=== PATIENT | female | born 1960 | race Caucasian/White ===

== ENCOUNTER 2020-10-09 10:31 | Outpatient (REF) | payer OTHER, SELFPAY ==
[2020-10-09 11:02] LABS: Hematocrit 41.5 % (37-47); Mean Corpuscular HGB Conc 33.7 g/dl (31.0-35.0); Mean Corpuscular Volume 91.8 fL (80-98); Mean Platelet Volume 9.7 fL (9.4-12.3); Platelet Count 247 X10*3/uL (160-400); Red Blood Count 4.52 X10*6/uL (4.20-5.50); Red Cell Distribution Width 11.9 % (11.0-16.0); White Blood Count 4.8 X10*3/uL (4.8-10.8)
[2020-10-09 11:28] LABS: Alanine Aminotransferase 14 U/L (0-31); Albumin Level 4.1 g/dL (3.5-5.0); Alkaline Phosphatase 69 U/L (39-117); Anion Gap 11 (12-20); Aspartate Amino Transferase 24 U/L (5-31); Bilirubin Direct 0.2 mg/dL (0.0-0.5); Bilirubin Total 0.5 mg/dL (0.0-1.0); Blood Urea Nitrogen 18 mg/dL (9-16); Calcium 8.7 mg/dL (8.4-10.2); Carbon Dioxide 31 mmol/L (22-29); Chloride 103 mmol/L (96-108); Cholesterol 179 mg/dL; Estimated Glomerular Filt Rate > 60; Glucose Fasting 88 mg/dL (60-99); HDL Cholesterol 80 mg/dL; LDL Cholesterol Calculated 87 mg/dl; Potassium 4.2 mmol/l (3.3-5.1); Sodium 141 mmol/L (135-145); Total Protein 6.8 g/dL (6.5-8.0); Triglycerides 60 mg/dL
== END 2020-10-09 10:32 | disposition home or self-care (01) ==
LOC: HO.LAB 10:31
DX: E78.5 Hyperlipidemia, unspecified (principal); R53.83 Other fatigue
CPT/HCPCS: 36415; 80053; 80061; 80076; 82248; 85027

== ENCOUNTER 2020-11-12 13:31 | Outpatient (REF) | payer OTHER, SELFPAY ==
[2020-11-17 15:02] LABS: HPV mRNA E6/E7 rflx Not Detected (Not Detected)
== END 2020-11-12 13:32 | disposition home or self-care (01) ==
LOC: HO.LNP 13:31
PROVIDERS: Visit Provider Obstetrics & Gynecology
DX: Z01.419 Encounter for gynecological examination (general) (routine) without abnormal findings (principal); F41.9 Anxiety disorder, unspecified; E78.00 Pure hypercholesterolemia, unspecified; Z78.0 Asymptomatic menopausal state; Z88.0 Allergy status to penicillin; Z88.8 Allergy status to other drugs, medicaments and biological substances; Z79.899 Other long term (current) drug therapy
CPT/HCPCS: 87624; 88141; 88142

== ENCOUNTER 2020-12-25 09:30 | Outpatient (REF) | payer OTHER, SELFPAY ==
[2020-12-25 10:05] LABS: MANUAL DIFF FLAG NO
[2020-12-25 10:17] LABS: Basophils Percent Auto 0.7 % (0-2); Eosinophils Absolute Auto 0.1 X10*3/uL (0.0-0.4); Eosinophils Percent Auto 1.6 % (0-4); Hematocrit 41.7 % (37-47); Hemoglobin 14.3 g/dl (12.0-16.0); Imm Gran Abs Auto 0.01 X10*3/uL (0.00-0.03); Imm Gran Pct Auto 0.2 % (0.0-0.4); Lymphocytes Percent Auto 23.8 % (20-40); Mean Corpuscular HGB Conc 34.3 g/dl (31.0-35.0); Mean Corpuscular Hemoglobin 30.9 pg (27.0-33.0); Mean Corpuscular Volume 90.1 fL (80-98); Mean Platelet Volume 10.3 fL (9.4-12.3); Monocytes Absolute Auto 0.3 X10*3/uL (0.1-1.2); Monocytes Percent Auto 6.8 % (2-11); Neutrophils Absolute Auto 2.8 X10*3/uL (2.0-8.3); Neutrophils Percent Auto 66.9 % (45-73); Platelet Count 230 X10*3/uL (160-400); Red Blood Count 4.63 X10*6/uL (4.20-5.50); Red Cell Distribution Width 12.1 % (11.0-16.0); White Blood Count 4.3 X10*3/uL (4.8-10.8)
[2020-12-25 10:31] LABS: Alanine Aminotransferase 15 U/L (0-31); Albumin Level 4.1 g/dL (3.5-5.0); Alkaline Phosphatase 64 U/L (39-117); Anion Gap 10 (12-20); Aspartate Amino Transferase 24 U/L (5-31); Bilirubin Total 0.5 mg/dL (0.0-1.0); Blood Urea Nitrogen 16 mg/dL (9-16); Calcium 8.8 mg/dL (8.4-10.2); Carbon Dioxide 30 mmol/L (22-29); Chloride 104 mmol/L (96-108); Cholesterol 177 mg/dL; Estimated Glomerular Filt Rate > 60; Glucose Fasting 88 mg/dL (60-99); HDL Cholesterol 83 mg/dL; LDL Cholesterol Calculated 82 mg/dl; Sodium 140 mmol/L (135-145); Total Protein 6.5 g/dL (6.5-8.0); Triglycerides 64 mg/dL
[2020-12-25 10:52] LABS: Thyroid Stimulating Hormone 1.38 uIU/mL (0.32-4.0)
== END 2020-12-25 09:31 | disposition home or self-care (01) ==
LOC: HO.LAB 09:30
PROVIDERS: PCP Internal Medicine; Visit Provider Internal Medicine
DX: Z00.00 Encounter for general adult medical examination without abnormal findings (principal); E78.00 Pure hypercholesterolemia, unspecified; F32.89 Other specified depressive episodes; F41.8 Other specified anxiety disorders
CPT/HCPCS: 36415; 80053; 80061; 84443; 85025

== ENCOUNTER 2021-05-25 15:09 | Outpatient (REF) | payer OTHER, SELFPAY ==
--- NOTE | ~2021-05-25 | MM_ITS ---
EXAMINATION: MM SCREENING DIGITAL BREAST TOMOSYNTHESIS, BILATERAL CLINICAL INFORMATION: Screening. Asymptomatic. The lifetime risk of breast cancer based on the Tyrer-Cuzick Model is 9%. COMPARISON: Mammography: 05/19/2020, 03/08/2019, 03/02/2018 TECHNIQUE: Digital breast tomosynthesis is performed in both the craniocaudal and mediolateral oblique views along with computer-aided detection (CAD). Synthesized 2D images are generated from the tomosynthesis. FINDINGS: There are scattered areas of fibroglandular density (ACR BI-RADS breast composition Category b). There are no significant masses, abnormal calcifications, or other abnormalities. There is no developing density. Parenchymal pattern is similar to prior studies. There are some scattered punctate and coarse calcifications again noted. The axilla and skin contours are unremarkable. MM/MM tomosynthesis screening BI IMPRESSION: No mammographic evidence of malignancy. ASSESSMENT: BI-RADS 1: Negative RECOMMENDATION: Routine annual mammography screening. This patient's information was entered into a reminder system with a target due date for their next mammogram.
== END 2021-05-25 15:10 | disposition home or self-care (01) ==
LOC: HO.MAMMO 15:09
PROVIDERS: Absent Provider Surgery; PCP Internal Medicine; Visit Provider Internal Medicine
DX: Z12.31 Encounter for screening mammogram for malignant neoplasm of breast (principal)
CPT/HCPCS: 77063; 77067

== ENCOUNTER → 2021-06-30 15:22 | Outpatient (BNVA) | payer OTHER, SELFPAY | PROVIDERS: PCP Internal Medicine; Visit Provider Surgery | DX: D24.2 Benign neoplasm of left breast (principal); E78.00 Pure hypercholesterolemia, unspecified; F41.9 Anxiety disorder, unspecified; Z88.0 Allergy status to penicillin; Z88.8 Allergy status to other drugs, medicaments and biological substances | CPT/HCPCS: 99212 ==

== ENCOUNTER → 2021-11-29 10:55 | Outpatient (BNVA) | payer OTHER, SELFPAY | PROVIDERS: PCP Internal Medicine; Visit Provider Obstetrics & Gynecology ==

== ENCOUNTER 2021-11-30 09:07 | Outpatient (REF) | payer OTHER, SELFPAY ==
[2021-11-30 09:28] LABS: MANUAL DIFF FLAG NO
[2021-11-30 09:59] LABS: Basophils Percent Auto 0.2 % (0-2); Eosinophils Absolute Auto 0.1 X10*3/uL (0.0-0.4); Eosinophils Percent Auto 2.3 % (0-4); Hematocrit 39.9 % (37.0-47.0); Hemoglobin 13.4 g/dl (12.0-16.0); Imm Gran Abs Auto 0.01 X10*3/uL (0.00-0.03); Imm Gran Pct Auto 0.2 % (0.0-0.4); Lymphocytes Absolute Auto 1.1 X10*3/uL (1.2-4.9); Lymphocytes Percent Auto 24.4 % (20-40); Mean Corpuscular HGB Conc 33.6 g/dl (31.0-35.0); Mean Corpuscular Hemoglobin 30.4 pg (27.0-33.0); Mean Corpuscular Volume 90.5 fL (80.0-98.0); Monocytes Absolute Auto 0.3 X10*3/uL (0.1-1.2); Monocytes Percent Auto 7.8 % (2-11); Neutrophils Absolute Auto 2.8 x10*3/uL (2.0-8.3); Neutrophils Percent Auto 65.1 % (45-73); Platelet Count 240 X10*3/uL (160-400); Red Blood Count 4.41 X10*6/uL (4.20-5.50); White Blood Count 4.3 X10*3/uL (4.8-10.8)
[2021-11-30 10:58] LABS: Alanine Aminotransferase 15 U/L (0-31); Albumin Level 3.9 g/dL (3.5-5.0); Alkaline Phosphatase 63 U/L (39-117); Anion Gap 10 (12-20); Aspartate Amino Transferase 25 U/L (5-31); Bilirubin Total 0.4 mg/dL (0.0-1.0); Blood Urea Nitrogen 18 mg/dL (9-16); Calcium 8.8 mg/dL (8.4-10.2); Carbon Dioxide 30 mmol/L (22-29); Chloride 105 mmol/L (96-108); Cholesterol 178 mg/dL; Estimated Glomerular Filt Rate > 60; Glucose Random 87 mg/dL (60-115); HDL Cholesterol 57 mg/dL; LDL Cholesterol Calculated 104 mg/dl; Potassium 4.2 mmol/L (3.3-5.1); Sodium 141 mmol/L (135-145); Total Protein 6.5 g/dL (6.5-8.0); Triglycerides 88 mg/dL
[2021-11-30 10:59] LABS: Thyroid Stimulating Hormone 2.17 uIU/mL (0.32-4.0)
== END 2021-11-30 09:08 | disposition home or self-care (01) ==
LOC: HO.LAB 09:07
PROVIDERS: PCP Internal Medicine; Visit Provider Internal Medicine
DX: B35.1 Tinea unguium (principal); E78.00 Pure hypercholesterolemia, unspecified; F32.89 Other specified depressive episodes; F41.8 Other specified anxiety disorders
CPT/HCPCS: 36415; 80053; 80061; 84443; 85025

== ENCOUNTER 2021-12-13 07:59 | Outpatient (REF) | payer OTHER, SELFPAY ==
--- NOTE | ~2021-12-13 | MM_ITS ---
EXAMINATION: BONE DENSITOMETRY CLINICAL INDICATION: Osteoporosis. COMPARISON: This is the patient's baseline examination. TECHNIQUE: Using a [employer] DXA System (software version: 13.1) manufactured by [employer], dual-energy x-ray absorptiometry was performed of the lumbar spine and left hip. The images are of good technical quality. Summary results are attached. FINDINGS: AP SPINE L1-L4: BMD 1.213 g/cm2, Z-score 1.6, T-score 0.3, normal. LEFT FEMUR, NECK: BMD 0.754 g/cm2, Z-score -0.7, T-score -2.0, osteopenia. LEFT FEMUR, TOTAL: BMD 0.770 g/cm2, Z-score -0.9, T-score -1.9, osteopenia. IDENTIFIED RISK FACTORS: Menopause, family history (parent hip fracture). HISTORY OF FRACTURE: None listed. MEDICATIONS: Calcium, vitamin D. MM/XR DEXA axial skeleton IMPRESSION: 1. DIAGNOSIS: Osteopenia based on the lowest T-score value of -2.0 in the femoral neck applying World Health Organization criteria. 2. 10-YEAR FRACTURE RISK PREDICTION, FRAX: Major osteoporotic fracture (clinical spine, forearm, hip or shoulder) 18.2%. Hip fracture 1.3%. 3. Treatment Recommendations: NOF guidelines recommend consideration for treatment in postmenopausal women and men age 50 and older presenting with the following: -A hip or vertebral (clinical or morphometric) fracture. -T-score less than or equal to -2.5 at the femoral neck or spine after appropriate evaluation to exclude secondary causes. -Low bone mass at the hip or spine and a 10-year fracture probability by FRAX of greater than or equal to 3% for hip fracture or greater than or equal to 20% for major osteoporotic fracture based on the [place] adapted WHO algorithm. 4. Other Recommendations: All treatment decisions require clinical judgment and consideration of individual patient factors, including patient preferences, comorbidities, previous drug use, risk factors not captured in the FRAX model (e.g. frailty, falls, vitamin D deficiency, increased bone turnover, interval significant decline in bone density) and possible under or overestimation of fracture risk by FRAX. Additional medical evaluation for secondary cause of low bone mineral density may be appropriate. FUTURE SCAN RECOMMENDATION: People with diagnosed cases of osteoporosis or at high risk for fracture should have regular bone mineral density tests. For patients eligible for Medicare, routine testing is allowed once every 2 years. The testing frequency can be increased to one year for patients who have rapidly progressing disease, those who are receiving or discontinuing medical therapy to restore bone mass, or have additional risk factors.
== END 2021-12-13 08:00 | disposition home or self-care (01) ==
LOC: HO.MAMMO 07:59
PROVIDERS: PCP Internal Medicine; Visit Provider Internal Medicine
DX: Z13.820 Encounter for screening for osteoporosis (principal); M85.80 Other specified disorders of bone density and structure, unspecified site; Z78.0 Asymptomatic menopausal state; Z79.899 Other long term (current) drug therapy
CPT/HCPCS: 77080

== ENCOUNTER 2022-05-26 15:30 | Outpatient (REF) | payer OTHER, SELFPAY ==
--- NOTE | ~2022-05-26 | MM_ITS ---
EXAMINATION: MM SCREENING DIGITAL BREAST TOMOSYNTHESIS, BILATERAL CLINICAL INFORMATION: Screening. Asymptomatic. The lifetime risk of breast cancer based on the Tyrer-Cuzick Model is 9%. COMPARISON: Mammography: 05/25/2021, 05/19/2020, 03/08/2019, 03/02/2018, 02/16/2017 TECHNIQUE: Digital breast tomosynthesis is performed in both the craniocaudal and mediolateral oblique views along with computer-aided detection (CAD). Synthesized 2D images are generated from the tomosynthesis. Additional left MLO view is provided. FINDINGS: There are scattered areas of fibroglandular density (ACR BI-RADS breast composition Category b). Parenchymal pattern is similar to prior studies. Scattered minor asymmetries are stable. There is no developing density or interval mass or architectural abnormality. There are scattered shifting fibroglandular parenchymal densities from year to year related to variation in positioning. No abnormal calcifications. The axilla are unremarkable. No significant changes. MM/MM tomosynthesis screening BI IMPRESSION: No mammographic evidence of malignancy. ASSESSMENT: BI-RADS 2: Benign RECOMMENDATION: Routine annual mammography screening. This patient's information was entered into a reminder system with a target due date for their next mammogram.
== END 2022-05-26 15:31 | disposition home or self-care (01) ==
LOC: HO.MAMMO 15:30
PROVIDERS: PCP Internal Medicine; Visit Provider Internal Medicine
DX: Z12.31 Encounter for screening mammogram for malignant neoplasm of breast (principal)
CPT/HCPCS: 77063; 77067

== ENCOUNTER 2022-06-03 09:23 | Outpatient (REF) | payer OTHER, SELFPAY ==
[2022-06-03 09:33] LABS: MANUAL DIFF FLAG NO
[2022-06-03 10:32] LABS: Basophils Percent Auto 0.5 % (0-2); Eosinophils Absolute Auto 0.2 X10*3/uL (0.0-0.4); Eosinophils Percent Auto 2.7 % (0-4); Hematocrit 40.7 % (37.0-47.0); Hemoglobin 13.9 g/dl (12.0-16.0); Imm Gran Abs Auto 0.02 X10*3/uL (0.00-0.03); Imm Gran Pct Auto 0.4 % (0.0-0.4); Lymphocytes Absolute Auto 1.2 X10*3/uL (1.2-4.9); Lymphocytes Percent Auto 22.7 % (20-40); Mean Corpuscular HGB Conc 34.2 g/dl (31.0-35.0); Mean Corpuscular Hemoglobin 30.3 pg (27.0-33.0); Mean Corpuscular Volume 88.7 fL (80.0-98.0); Mean Platelet Volume 10.3 fL (9.4-12.3); Monocytes Absolute Auto 0.4 X10*3/uL (0.1-1.2); Neutrophils Absolute Auto 3.6 x10*3/uL (2.0-8.3); Neutrophils Percent Auto 65.7 % (45-73); Platelet Count 253 X10*3/uL (160-400); Red Blood Count 4.59 X10*6/uL (4.20-5.50); White Blood Count 5.5 X10*3/uL (4.8-10.8)
[2022-06-03 10:37] LABS: Alanine Aminotransferase 13 U/L (0-31); Albumin Level 4.1 g/dL (3.5-5.0); Alkaline Phosphatase 70 U/L (39-117); Anion Gap 12 (12-20); Aspartate Amino Transferase 23 U/L (5-31); Bilirubin Total 0.5 mg/dL (0.0-1.0); Blood Urea Nitrogen 18 mg/dL (9-16); Calcium 8.8 mg/dL (8.4-10.2); Carbon Dioxide 31 mmol/L (22-29); Chloride 104 mmol/L (96-108); Cholesterol 173 mg/dL; Estimated Glomerular Filt Rate > 60; Glucose Random 84 mg/dL (60-115); HDL Cholesterol 53 mg/dL; LDL Cholesterol Calculated 98 mg/dl; Potassium 4.3 mmol/L (3.3-5.1); Sodium 143 mmol/L (135-145); Total Protein 6.9 g/dL (6.5-8.0); Triglycerides 114 mg/dL
== END 2022-06-03 09:24 | disposition home or self-care (01) ==
LOC: HO.LAB 09:23
PROVIDERS: PCP Internal Medicine; Visit Provider Internal Medicine
DX: Z00.00 Encounter for general adult medical examination without abnormal findings (principal); E78.00 Pure hypercholesterolemia, unspecified; F33.41 Major depressive disorder, recurrent, in partial remission
CPT/HCPCS: 36415; 80053; 80061; 85025

== ENCOUNTER → 2022-07-06 13:55 | Outpatient (BNVA) | payer OTHER, SELFPAY | PROVIDERS: PCP Internal Medicine; Visit Provider Surgery | DX: D24.2 Benign neoplasm of left breast (principal) | CPT/HCPCS: 99212 ==

== ENCOUNTER 2022-12-02 09:48 | Outpatient (REF) | payer OTHER, SELFPAY ==
[2022-12-02 09:57] LABS: MANUAL DIFF FLAG NO
[2022-12-02 10:25] LABS: Basophils Percent Auto 0.4 % (0-2); Eosinophils Absolute Auto 0.1 X10*3/uL (0.0-0.4); Eosinophils Percent Auto 2.1 % (0-4); Hematocrit 41.5 % (37.0-47.0); Hemoglobin 14.2 g/dl (12.0-16.0); Imm Gran Abs Auto 0.01 X10*3/uL (0.00-0.03); Imm Gran Pct Auto 0.1 % (0.0-0.4); Lymphocytes Absolute Auto 1.2 X10*3/uL (1.2-4.9); Mean Corpuscular HGB Conc 34.2 g/dl (31.0-35.0); Mean Corpuscular Hemoglobin 30.1 pg (27.0-33.0); Mean Corpuscular Volume 87.9 fL (80.0-98.0); Monocytes Absolute Auto 0.5 X10*3/uL (0.1-1.2); Monocytes Percent Auto 7.8 % (2-11); Neutrophils Absolute Auto 4.9 x10*3/uL (2.0-8.3); Neutrophils Percent Auto 72.6 % (45-73); Platelet Count 289 X10*3/uL (160-400); Red Blood Count 4.72 X10*6/uL (4.20-5.50); Red Cell Distribution Width 12.1 % (11.0-16.0); White Blood Count 6.8 X10*3/uL (4.8-10.8)
[2022-12-02 12:33] LABS: Alanine Aminotransferase 13 U/L (0-31); Albumin Level 4.2 g/dL (3.5-5.0); Alkaline Phosphatase 79 U/L (39-117); Anion Gap 15 (12-20); Aspartate Amino Transferase 25 U/L (5-31); Bilirubin Total 0.5 mg/dL (0.0-1.0); Blood Urea Nitrogen 19 mg/dL (9-16); Calcium 9.3 mg/dL (8.4-10.2); Carbon Dioxide 28 mmol/L (22-29); Chloride 103 mmol/L (96-108); Cholesterol 192 mg/dL; Estimated Glomerular Filt Rate > 60; Glucose Random 83 mg/dL (60-115); HDL Cholesterol 56 mg/dL; LDL Cholesterol Calculated 107 mg/dl; Potassium 4.3 mmol/L (3.3-5.1); Sodium 142 mmol/L (135-145); Total Protein 6.9 g/dL (6.5-8.0); Triglycerides 146 mg/dL
[2022-12-02 12:53] LABS: Vitamin D 25-OH Total 30.9 ng/mL (>30)
== END 2022-12-02 09:49 | disposition home or self-care (01) ==
LOC: HO.LAB 09:48
PROVIDERS: PCP Internal Medicine; Visit Provider Internal Medicine
DX: E78.00 Pure hypercholesterolemia, unspecified (principal); F33.41 Major depressive disorder, recurrent, in partial remission; F41.8 Other specified anxiety disorders
CPT/HCPCS: 36415; 80053; 80061; 82306; 85025

== ENCOUNTER 2022-12-06 13:43 | Outpatient (REF) | payer OTHER, SELFPAY ==
[2022-12-06 14:55] LABS: D Dimer High Sensitivity < 150 NG/ML
[2022-12-06 15:38] LABS: Thyroid Stimulating Hormone 3.42 uIU/mL (0.32-4.0)
== END 2022-12-06 13:44 | disposition home or self-care (01) ==
LOC: HO.LAB 13:43
PROVIDERS: PCP Internal Medicine; Visit Provider Internal Medicine
DX: Z00.00 Encounter for general adult medical examination without abnormal findings (principal); E78.00 Pure hypercholesterolemia, unspecified; F32.5 Major depressive disorder, single episode, in full remission; R60.0 Localized edema; R63.5 Abnormal weight gain
CPT/HCPCS: 36415; 84443; 85379

== ENCOUNTER → 2023-03-28 07:56 | Outpatient (BNVA) | payer OTHER, SELFPAY | PROVIDERS: PCP Internal Medicine; Visit Provider Obstetrics & Gynecology ==

== ENCOUNTER 2023-05-29 09:48 | Outpatient (REF) | payer OTHER, SELFPAY ==
--- NOTE | ~2023-05-29 | MM_ITS ---
EXAMINATION: MM SCREENING DIGITAL BREAST TOMOSYNTHESIS, BILATERAL CLINICAL INFORMATION: Screening. Asymptomatic. The lifetime risk of breast cancer based on the Tyrer-Cuzick Model is 7.6%. COMPARISON: Mammography: This study is compared with prior exams dating back to 2019. TECHNIQUE: Digital breast tomosynthesis is performed in both the craniocaudal and mediolateral oblique views along with computer-aided detection (CAD). Synthesized 2D images are generated from the tomosynthesis. FINDINGS: There are scattered areas of fibroglandular density (ACR BI-RADS breast composition Category b). There are no significant masses, abnormal calcifications, or other abnormalities. MM/MM tomosynthesis screening BI IMPRESSION: No mammographic evidence of malignancy. ASSESSMENT: BI-RADS BI-RADS 1 - Negative RECOMMENDATION: Routine annual mammography screening. 1 year F/U This examination should not preclude the clinical evaluation of a suspicious palpable abnormality. This patient's information was entered into a reminder system with a target due date for their next mammogram.
== END 2023-05-29 09:49 | disposition home or self-care (01) ==
LOC: HO.MAMMO 09:48
PROVIDERS: PCP Internal Medicine; Visit Provider Internal Medicine
DX: Z12.31 Encounter for screening mammogram for malignant neoplasm of breast (principal)
CPT/HCPCS: 77063; 77067

== ENCOUNTER → 2023-05-29 10:00 | Outpatient (BNV) | payer OTHER, SELFPAY | PROVIDERS: PCP Internal Medicine; Visit Provider Radiology Diagnostic Radiology | DX: Z12.31 Encounter for screening mammogram for malignant neoplasm of breast (principal) | CPT/HCPCS: 77063; 77067 ==

== ENCOUNTER 2023-07-10 13:55 | Outpatient (AMB) | payer OTHER, SELFPAY ==
--- NOTE | 2023-07-10 14:01 | MHC.OFFVIS ---
Intake Vital Signs 07/10/23 14:09 Height 5 ft 1 in Weight 134 lb 4 oz BMI 25.4 BP 146/85 H Blood Pressure Location Lt brachial Position Sitting Pulse 89 Intake Visit Reasons: yearly breast examination Intake Note: Patient is seen in office for yearly breast exam. Patient c/o: denies any concerns regarding the breast, had a recent mammogram done 05/2023 Project Engineering Manager Required: No Ceramic Engineer: Ceramic Engineer Present Accompanied by: Self / Same As Patient Allergies penicillin V Allergy (Intermediate, Verified 07/10/23 14:07) Rash Motrin Allergy (Unknown, Uncoded 07/10/23 14:07) rash Medication List - Last Reconciled 07/10/23 by Andrew Harris MD cholecalciferol (vitamin D3) 25 mcg PO DAILY docusate sodium (Colace) 100 mg PO DAILY melatonin 5 mg PO BEDTIME pravastatin 20 mg PO DAILY sertraline 50 mg PO DAILY HPI HPI Comments History of Present Illness Details 62-year-old female, former patient of Dr. Bergman, returning for follow-up breast examination.? 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 Bergman.? The lesion was initially biopsied under ultrasound guidance in 2007 felt to be consistent with a fibroadenoma.? The lump was noted to have increased in size and repeat images confirmed the enlargement.? Subsequent core biopsy again revealed fibroadenoma.? Because of the enlargement however excision was recommended.? She subsequently underwent wide excision on 07/07/2015.? Pathology confirmed a phyllodes tumor which extended to the margin.? She subsequently underwent a wider excision on 09/15/2015.? No residual phyllodes tumor was noted in the specimen.? She returns today for follow-up yearly breast examination.? Her last mammogram from 05/29/2023 revealed no mammographic evidence of malignancy (BI-RADS 1). ? Routine annual mammography screening was recommended. She feels well and denies any new breast symptoms. She is trying to avoid saturated fats and salts in her diet. 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 Sexual orientation: Straight/Heterosexual Gender identity: Female Female Reproductive History Menstrual Age of Menarche: 14 Review of Systems Const All systems reviewed & are unremarkable except as noted in HPI and below Denies nipple discharge Skin/Breast Denies breast swelling, Denies breast skin changes, Denies breast pain, Denies breast mass, Denies change in breast shape and Denies nipple discharge Emory/Lymph Denies lymphadenopathy Physical Exam Vital Signs: Last Vital Signs Pulse 89 07/10/23 14:09 BP 146/85 H 07/10/23 14:09 BMI result Body Mass Index 25.4 Const General: cooperative, no acute distress and well developed Nutritional Appearance: average body habitus Orientation/consciousness: patient oriented x3 Limitations: no limitations HEENT Head: Yes normocephalic and Yes atraumatic Neck Neck: Yes no lymphadenopathy, Yes trachea midline and Yes supple Chest Other: Left breast: No skin change, no nipple retraction, no nipple discharge, no palpable mass, no enlarged lymph nodes. Incision upper outer quadrant; no evidence of recurrent phyllodes tumor. Right breast: No skin change, no nipple retraction, no nipple discharge, no palpable mass, no enlarged lymph nodes Resp Effort & Inspection: normal respiratory effort, no audible wheezes and no cough GI Inspection: Yes normal to inspection Skin General skin exam: no rashes or lesions noted Neuro General: patient oriented x3 Extrem General: Yes no clubbing, cyanosis or edema Assessment & Plan Assessment & Plan (1) Benign phyllodes tumor of left breast: Code(s): D24.2 - Benign neoplasm of left breast Plan: 62-year-old female patient returning for a yearly breast examination after excision of a left breast phyllodes tumor in 2014. She feels well and denies any ongoing symptoms. Examination today reveals no evidence of recurrence disease. Her most recent mammogram of 05/29/2023 reveals no significant changes from prior mammogram (BI-RADS 1). I recommended a follow-up examination in 1 year following her next mammogram in May 2022. She is welcome to call sooner for any concerns. Coding Level of Care Code Est Pt Level 3 (13015) Diagnoses Benign phyllodes tumor of left breast D24.2
[2023-07-10 14:09] VITALS: BP 146/85; PULSE 89; BMI 25.4
== END 2023-07-10 14:20 | disposition home or self-care (01) ==
PROVIDERS: PCP Internal Medicine; Visit Provider Surgery
DX: D24.2 Benign neoplasm of left breast (principal)
CPT/HCPCS: 99213

== ENCOUNTER → 2023-07-10 13:55 | Outpatient (BNVA) | payer OTHER, SELFPAY | PROVIDERS: PCP Internal Medicine; Visit Provider Surgery | DX: D24.2 Benign neoplasm of left breast (principal) | CPT/HCPCS: 99212 ==

== ENCOUNTER 2023-11-24 10:00 | Outpatient (REF) | payer OTHER, SELFPAY ==
[2023-11-24 10:24] LABS: MANUAL DIFF FLAG NO
[2023-11-24 10:41] LABS: Basophils Percent Auto 0.5 % (0-2); Eosinophils Absolute Auto 0.2 X10*3/uL (0.0-0.4); Hematocrit 38.8 % (37.0-47.0); Hemoglobin 13.4 g/dl (12.0-16.0); Imm Gran Abs Auto 0.01 X10*3/uL (0.00-0.03); Imm Gran Pct Auto 0.2 % (0.0-0.4); Lymphocytes Percent Auto 17.3 % (20-40); Mean Corpuscular HGB Conc 34.5 g/dl (31.0-35.0); Mean Corpuscular Hemoglobin 30.5 pg (27.0-33.0); Mean Corpuscular Volume 88.4 fL (80.0-98.0); Mean Platelet Volume 9.9 fL (9.4-12.3); Monocytes Absolute Auto 0.4 X10*3/uL (0.1-1.2); Neutrophils Absolute Auto 4.3 x10*3/uL (2.0-8.3); Platelet Count 226 X10*3/uL (160-400); Red Blood Count 4.39 X10*6/uL (4.20-5.50); Red Cell Distribution Width 12.1 % (11.0-16.0)
[2023-11-24 11:37] LABS: Alanine Aminotransferase 14 U/L (0-31); Albumin Level 3.9 g/dL (3.5-5.0); Alkaline Phosphatase 63 U/L (39-117); Anion Gap 13 (12-20); Aspartate Amino Transferase 23 U/L (5-31); Bilirubin Total 0.4 mg/dL (0.0-1.0); Blood Urea Nitrogen 20 mg/dL (9-16); Carbon Dioxide 26 mmol/L (22-29); Chloride 107 mmol/L (96-108); Cholesterol 155 mg/dL (<200); Estimated Glomerular Filt Rate > 60; Glucose Random 87 mg/dL (60-115); HDL Cholesterol 60 mg/dL (>40); LDL Cholesterol Calculated 83 mg/dL (<100); Potassium 4.1 mmol/L (3.3-5.1); Sodium 142 mmol/L (135-145); Total Protein 6.9 g/dL (6.5-8.0); Triglycerides 61 mg/dL (<150)
== END 2023-11-24 10:01 | disposition home or self-care (01) ==
LOC: HO.LAB 10:00
PROVIDERS: PCP Internal Medicine; Visit Provider Internal Medicine
DX: E78.00 Pure hypercholesterolemia, unspecified (principal); F32.5 Major depressive disorder, single episode, in full remission; I10 Essential (primary) hypertension
CPT/HCPCS: 36415; 80053; 80061; 85025

== ENCOUNTER 2024-04-01 07:46 | Outpatient (AMB) | payer OTHER, SELFPAY ==
[2024-04-01 07:50] VITALS: BP 110/68; BMI 25.5
--- NOTE | 2024-04-01 07:50 | A.OFFVIS_ITS ---
Vital Signs 04/01/24 07:50 Height 5 ft 1 in Weight 135 lb BMI 25.5 BP 110/68 Intake Visit Reasons: MANAGER CONFIGURATION annual exam Intake Note: no concerns Briquette Operator Required: No Information Interpreted: non-clinical & clinical Teller Coordinator: Teller Coordinator Present (Slime JOHNSON) Accompanied by: Self / Same As Patient Allergies penicillin V Allergy (Intermediate, Verified 04/01/24 08:08) Rash Motrin Allergy (Unknown, Uncoded 04/01/24 08:08) rash Post menopausal: Yes HPI Comments Details: Presenting for annual exam. No complaints. 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 Sexual orientation: Straight/Heterosexual Gender identity: Female Female Reproductive History Menstrual Age of Menarche: 14 Menopause type: natural Total pregnancies: 0 Date of last pap smear: 11/05/20 Date of Mammogram: 05/29/23 Review of Systems Const All systems reviewed & are unremarkable except as noted in HPI and below Card Reports as per HPI Resp Reports as per HPI GI Reports as per HPI and Reports no additional complaints Reports as per HPI Physical Exam Vital Signs: Last Vital Signs BP 110/68 04/01/24 07:50 BMI result Body Mass Index 25.5 Const General: cooperative, healthy appearing and comfortable Chest Chest palpation & inspection: normal inspection of the chest and normal palpation of entire chest wall Breast/axilla inspection: normal inspection of the breasts and normal inspection of the axillae Breast/axilla palpation: normal palpation of the breasts, normal palpation of the axillae and no axillary lymphadenopathy Resp Effort & Inspection: normal respiratory effort Auscultation: clear to auscultation bilaterally Percussion: percussion normal Cardio Palpation: normal PMI Rate: regular rate Rhythm: regular rhythm Heart sounds: no murmurs and no rubs Peripheral pulses: Peripheral pulses 2+ throughout GI Inspection: Yes normal to inspection Palpation (GI): Soft to palpation, nontender, no guarding, not rigid and No hepatosplenomegaly present Percussion: Yes normal to percussion Auscultation: normal bowel sounds Rectal Exam - Female: deferred General: Yes bladder normal to palpation External Female Exam: No lesion Speculum Exam - Vagina: normal appearance of the vagina, normal palpation, normal vaginal discharge and not erythematous Speculum Exam - Cervix: normal appearance of the cervix and normal palpation Bimanual exam- vagina & uterus: normal bimanual exam, normal palpation, uterine size normal, bladder normal to palpation, consistency normal and normal palpation Bimanual Exam- Adnexa, other: normal adnexae, no masses and no tenderness Assessment & Plan Assessment & Plan (1) Well woman exam: Code(s): Z01.419 - Encounter for gynecological examination (general) (routine) without abnormal findings Category: Medical Plan: Co testing not indicated this year. Counseled the patient about the recommended dietary allowance of 1200 mg of Calcium & 600 IU of vitamin D. Instructions given the patient to schedule next screening Mammogram in 06/21. The patient was instructed to perform monthly self-breast exams and schedule annual exam in a year. All questions answered and the patient verbalized understanding. Coding Level of Care Code Est Pt Prev Care 40-64y(07523) Diagnoses Well woman exam Z01.419
== END 2024-04-01 08:40 | disposition home or self-care (01) ==
LOC: HO.HWS 07:46
PROVIDERS: PCP Internal Medicine; Visit Provider Obstetrics & Gynecology
DX: Z01.419 Encounter for gynecological examination (general) (routine) without abnormal findings (principal)
CPT/HCPCS: 99396

== ENCOUNTER → 2024-04-01 07:46 | Outpatient (BNVA) | payer OTHER, SELFPAY | PROVIDERS: PCP Internal Medicine; Visit Provider Obstetrics & Gynecology | DX: Z01.419 Encounter for gynecological examination (general) (routine) without abnormal findings (principal) | CPT/HCPCS: 99396 ==

== ENCOUNTER 2024-06-03 09:46 | Outpatient (REF) | payer OTHER, SELFPAY ==
--- NOTE | ~2024-06-03 | MM_ITS ---
EXAMINATION: MM SCREENING DIGITAL BREAST TOMOSYNTHESIS, BILATERAL CLINICAL INFORMATION: Screening. Asymptomatic. The patient is status post excision of a left fibroadenoma of the upper outer quadrant in 2015. COMPARISON: Mammography: This study is compared with prior exams dating back to 2015. TECHNIQUE: Digital breast tomosynthesis is performed in both the craniocaudal and mediolateral oblique views along with computer-aided detection (CAD). Synthesized 2D images are generated from the tomosynthesis. FINDINGS: There are scattered areas of fibroglandular density (ACR BI-RADS breast composition Category b). There are no significant masses, abnormal calcifications, or other abnormalities. There are postsurgical changes in the upper outer quadrant of the left breast from prior benign excision. MM/MM tomosynthesis screening BI IMPRESSION: No mammographic evidence of malignancy. ASSESSMENT: BI-RADS BI-RADS 2 - Benign Findings RECOMMENDATION: Routine annual mammography screening. 1 year F/U This examination should not preclude the clinical evaluation of a suspicious palpable abnormality. This patient's information was entered into a reminder system with a target due date for their next mammogram.
== END 2024-06-03 09:47 | disposition home or self-care (01) ==
LOC: HO.MAMMO 09:46
PROVIDERS: PCP Internal Medicine; Visit Provider Internal Medicine
DX: Z12.31 Encounter for screening mammogram for malignant neoplasm of breast (principal)
CPT/HCPCS: 77063; 77067

== ENCOUNTER → 2024-06-03 10:00 | Outpatient (BNV) | payer OTHER, SELFPAY | PROVIDERS: PCP Internal Medicine; Visit Provider Radiology Diagnostic Radiology | DX: Z12.31 Encounter for screening mammogram for malignant neoplasm of breast (principal) | CPT/HCPCS: 77063; 77067 ==

== ENCOUNTER 2024-08-12 11:04 | Outpatient (AMB) | payer OTHER, SELFPAY ==
--- NOTE | 2024-08-12 11:17 | A.OFFVIS_ITS ---
Vital Signs 3 08/12/24 11:19 Height 5 ft Weight 139 lb 6 oz BMI 27.2 BP 141/82 H Blood Pressure Location Lt brachial Position Sitting Pulse 93 Intake Visit Reasons: yearly breast exam Intake Note: Patient is seen in office for yearly breast exam. Pt c/o: denies any concerns regarding the breast mm: 06/03/24 Food Service Tray Attendant Required: No Prior Authorization Technician: Prior Authorization Technician Present Accompanied by: Self / Same As Patient Allergies penicillin V Allergy (Intermediate, Verified 08/12/24 11:19) Rash Motrin Allergy (Unknown, Uncoded 08/12/24 11:19) rash HPI Comments Details: 63-year-old female, former patient of Dr. Bergman, returning for follow-up breast examination.? 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 Bergman.? The lesion was initially biopsied under ultrasound guidance in 2007 felt to be consistent with a fibroadenoma.? The lump was noted to have increased in size and repeat images confirmed the enlargement.? Subsequent core biopsy again revealed fibroadenoma.? Because of the enlargement however excision was recommended.? She subsequently underwent wide excision on 07/07/2015.? Pathology confirmed a phyllodes tumor which extended to the margin.? She subsequently underwent a wider excision on 09/15/2015.? No residual phyllodes tumor was noted in the specimen.? She returns today for follow-up yearly breast examination.? Her last mammogram from 06/03/2024 revealed no mammographic evidence of malignancy (BI-RADS 2). ? Routine annual mammography screening was recommended. She feels well and denies any new breast symptoms. 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 Sexual orientation: Straight/Heterosexual Gender identity: Female Female Reproductive History Menstrual Age of Menarche: 14 Review of Systems Const All systems reviewed & are unremarkable except as noted in HPI and below Denies nipple discharge Skin/Breast Denies breast swelling, Denies breast skin changes, Denies breast pain, Denies breast mass, Denies change in breast shape and Denies nipple discharge Emory/Lymph Denies lymphadenopathy Physical Exam Vital Signs: Last Vital Signs Pulse 93 08/12/24 11:19 BP 141/82 H 08/12/24 11:19 BMI result Body Mass Index 27.2 Const General: cooperative, no acute distress and well developed Nutritional Appearance: average body habitus Orientation/consciousness: patient oriented x3 Limitations: no limitations HEENT Head: Yes normocephalic and Yes atraumatic Neck Neck: Yes no lymphadenopathy, Yes trachea midline and Yes supple Chest Other: Left breast: No skin change, no nipple retraction, no nipple discharge, no palpable mass, no enlarged lymph nodes. Incision upper outer quadrant; no evidence of recurrent phyllodes tumor. Right breast: No skin change, no nipple retraction, no nipple discharge, no palpable mass, no enlarged lymph nodes Chest/axillae images: 2 1. Incision left breast upper outer quadrant Resp Effort & Inspection: normal respiratory effort, no audible wheezes and no cough GI Inspection: Yes normal to inspection Skin General skin exam: no rashes or lesions noted Neuro Other: Mobility Assessment: 1. 3 meter assessment time (seconds)5 2. Gait observations: Normal balance and gait General: patient oriented x3 Extrem General: Yes no clubbing, cyanosis or edema Assessment & Plan Assessment & Plan (1) Benign phyllodes tumor of left breast: Code(s): D24.2 - Benign neoplasm of left breast Category: Medical Plan: 63-year-old female patient returning for a yearly breast examination after excision of a left breast phyllodes tumor in 2014. She feels well and denies any ongoing symptoms. Examination today reveals no evidence of recurrence disease. Her most recent mammogram of 06/03/2024 reveals no mammographic evidence of malignancy (BI-RADS 2).. I recommended a follow-up examination in 1 year following her next mammogram in May 2025. She is welcome to call sooner for any concerns. Coding Level of Care Code Est Pt Level 3 (65505) Diagnoses Benign phyllodes tumor of left breast D24.2
[2024-08-12 11:19] VITALS: BP 141/82; PULSE 93; BMI 27.2
== END 2024-08-12 11:32 | disposition home or self-care (01) ==
PROVIDERS: PCP Internal Medicine; Visit Provider Surgery
DX: D24.2 Benign neoplasm of left breast (principal)
CPT/HCPCS: 99213

== ENCOUNTER → 2024-08-12 11:04 | Outpatient (BNVA) | payer OTHER, SELFPAY | PROVIDERS: PCP Internal Medicine; Visit Provider Surgery | DX: D24.2 Benign neoplasm of left breast (principal) | CPT/HCPCS: 99212 ==

== ENCOUNTER 2024-12-27 10:22 | Outpatient (REF) | payer OTHER, SELFPAY ==
[2024-12-27 12:09] LABS: Alanine Aminotransferase 17 U/L (0-31); Albumin Level 3.9 g/dL (3.5-5.0); Alkaline Phosphatase 72 U/L (39-117); Anion Gap 12 (12-20); Aspartate Amino Transferase 27 U/L (5-31); Bilirubin Total 0.5 mg/dL (0.0-1.0); Blood Urea Nitrogen 18 mg/dL (9-16); Carbon Dioxide 28 mmol/L (22-29); Chloride 106 mmol/L (96-108); Cholesterol 157 mg/dL (<200); Estimated Glomerular Filt Rate > 60; Glucose Random 84 mg/dL (60-115); HDL Cholesterol 52 mg/dL (>40); LDL Cholesterol Calculated 81 mg/dL (<100); Potassium 4.2 mmol/L (3.3-5.1); Sodium 142 mmol/L (135-145); Total Protein 7.3 g/dL (6.5-8.0); Triglycerides 123 mg/dL (<150)
== END 2024-12-27 10:23 | disposition home or self-care (01) ==
LOC: HO.LAB 10:22
PROVIDERS: PCP Internal Medicine; Visit Provider Internal Medicine
DX: Z00.00 Encounter for general adult medical examination without abnormal findings (principal); F32.5 Major depressive disorder, single episode, in full remission; I10 Essential (primary) hypertension; Z68.25 Body mass index [BMI] 25.0-25.9, adult
CPT/HCPCS: 36415; 80053; 80061

== ENCOUNTER 2025-06-09 09:54 | Outpatient (REF) | payer OTHER, SELFPAY ==
--- OUTSIDE RECORDS SUMMARY | 2024-05-20 05:30 | XMS_ITS ---
Author Organization [facility] Address [address] [place] [phone] Care Team Providers Care Precision Lens Grinder Apprentice Name Role Phone Kelly Jose Primary Care Provider Unavailab Lokesh Silvestre [phone] REASON FOR VISIT COLONOSCOPY Encounters Encounter Location Date Provider Diagnosis [facility] [address] [place] [phone] 05/20/2024 Lokesh Mojica Plan Of Treatment No Information Progress Notes * JALYN BOCANEGRAOB:1960 ( 64 yo F)Acc No.[id number]:05/20/2024 Progress Notes Patient: ARIANNA MOYA Provider: Jignesh Mojica MD :1960 A ge:63 Y S ex:Female Date:05/20/2024 Address:[address] [place], [place] [id number] Pcp:Kelly Jose Subjective: * Chief Complaints: * 1 . COLONOSCOPY. * Medical History: Objective: * Vitals: Assessment: Plan: * Treatment: * * The named appointment provid er may or may not be the originator of this progress note, and it is not deemed complete until electronically signed by the appointment provider. Sign off status: Pending * Provider: Jignesh Mojica MD Date: 05/20/2024 Generated for Juan Carlos dickens/Nitin/Catarinaitting on: 06/09/2025 10:42 AM EDT
== END 2025-06-09 09:55 | disposition home or self-care (01) ==
LOC: HO.MAMMO 09:54
PROVIDERS: PCP Internal Medicine; Visit Provider Internal Medicine
DX: Z12.31 Encounter for screening mammogram for malignant neoplasm of breast (principal)
CPT/HCPCS: 77063; 77067

== ENCOUNTER → 2025-06-09 10:15 | Outpatient (BNV) | payer OTHER, SELFPAY | PROVIDERS: PCP Internal Medicine; Visit Provider Radiology Body Imaging | DX: Z12.31 Encounter for screening mammogram for malignant neoplasm of breast (principal) | CPT/HCPCS: 77063; 77067 ==

== ENCOUNTER 2025-08-18 12:37 | Outpatient (AMB) | payer OTHER, SELFPAY ==
--- OUTSIDE RECORDS SUMMARY | 2024-05-20 05:30 | XMS_ITS ---
Author Organization [facility] Address [address] [place] [id number] Care Team Providers Care Road Mender Name Role Phone Kelly Jose Primary Care Provider Unavailab Lokesh Silvestre [phone] REASON FOR VISIT COLONOSCOPY Encounters Encounter Location Date Provider Diagnosis [facility] [address] [place] [id number] 05/20/2024 Lokesh Mojica Plan Of Treatment No Information Progress Notes * JALYN BOCANEGRAOB:1960 ( 64 yo F)Acc No.[id number]:05/20/2024 Progress Notes Patient: ARIANNA MOYA Provider: Jignesh Mojica MD :1960 A ge:63 Y S ex:Female Date:05/20/2024 Address:[address] [place], [place] [id number] Pcp:Kelly Jose Subjective: * Chief Complaints: * 1 . COLONOSCOPY. * Medical History: Objective: * Vitals: Assessment: Plan: * Treatment: * * The named appointment provid er may or may not be the originator of this progress note, and it is not deemed complete until electronically signed by the appointment provider. Sign off status: Pending * Provider: Jignesh Mojica MD Date: 0 05/20/2024 Generated for Juan Carlos dickens/Nitin/Catarinaitting on: 04:05 PM EDT
--- NOTE | 2025-08-18 12:45 | MHC.OFFVIS ---
Vital Signs 08/18/25 12:50 Height 5 ft 2 in Weight 146 lb 8 oz BMI 26.8 BP 145/85 H Blood Pressure Location Rt brachial Position Standing Pulse 87 Intake Visit Reasons: yearly breast exam Intake Note: Patient presents for a annual breast examination assessment. Pt c/o; no breast complaints at this time. Crematory Attendant Required: No Accompanied by: Self / Same As Patient Allergies penicillin V Allergy (Intermediate, Verified 08/18/25 12:52) Rash Motrin Allergy (Unknown, Uncoded 08/18/25 12:52) rash Medication List - Last Reconciled 08/18/25 by Andrew Harris MD cholecalciferol (vitamin D3) 25 mcg PO DAILY docusate sodium (Colace) 100 mg PO DAILY melatonin 5 mg PO BEDTIME pravastatin 20 mg PO DAILY sertraline 50 mg PO DAILY HPI Comments Details: 64-year-old female, former patient of Dr. Bergman, returning for follow-up breast examination.? 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 Bergman.? The lesion was initially biopsied under ultrasound guidance in 2007 felt to be consistent with a fibroadenoma.? The lump was noted to have increased in size and repeat images confirmed the enlargement.? Subsequent core biopsy again revealed fibroadenoma.? Because of the enlargement however excision was recommended.? She subsequently underwent wide excision on 07/07/2015.? Pathology confirmed a phyllodes tumor which extended to the margin.? She subsequently underwent a wider excision on 09/15/2015.? No residual phyllodes tumor was noted in the specimen.? She returns today for follow-up yearly breast examination.? Her last mammogram from 06/09/2025 revealed no mammographic evidence of malignancy (BI-RADS 2). ? Routine annual mammography screening was recommended. She feels well and denies any new breast symptoms. 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 Sexual orientation: Straight/Heterosexual Gender identity: Female Female Reproductive History Menstrual Age of Menarche: 14 Review of Systems Const All systems reviewed & are unremarkable except as noted in HPI and below Physical Exam Vital Signs: Last Vital Signs Pulse 87 08/18/25 12:50 BP 145/85 H 08/18/25 12:50 BMI result Body Mass Index 26.8 Const General: cooperative, no acute distress and well developed Nutritional Appearance: average body habitus Orientation/consciousness: patient oriented x3 Limitations: no limitations HEENT Head: Yes normocephalic and Yes atraumatic Neck Neck: Yes no lymphadenopathy, Yes trachea midline and Yes supple Chest Other: Left breast: No skin change, no nipple retraction, no nipple discharge, no palpable mass, no enlarged lymph nodes. Incision upper outer quadrant; no evidence of recurrent phyllodes tumor. Right breast: No skin change, no nipple retraction, no nipple discharge, no palpable mass, no enlarged lymph nodes Chest/axillae images:  1. Incision left breast upper outer quadrant Resp Effort & Inspection: normal respiratory effort, no audible wheezes and no cough GI Inspection: Yes normal to inspection Skin General skin exam: no rashes or lesions noted Neuro Other: Mobility Assessment: 1. 3 meter assessment time (seconds) 6 2. Gait observations: Normal balance and gait General: patient oriented x3 Extrem General: Yes no clubbing, cyanosis or edema Assessment & Plan Assessment & Plan (1) Benign phyllodes tumor of left breast: Code(s): D24.2 - Benign neoplasm of left breast Category: Medical Plan: 64-year-old female patient returning for a yearly breast examination after excision of a left breast phyllodes tumor in 2014. She feels well and denies any ongoing symptoms. Examination today reveals no evidence of recurrence disease. Her most recent mammogram of 06/09/2025 reveals no mammographic evidence of malignancy (BI-RADS 2).. I recommended a follow-up examination in 1 year following her next mammogram in May 2026. She is welcome to call sooner for any concerns. Coding Level of Care Code Est Pt Level 3 (25224) Complex EM visit Add On G2211 Diagnoses Benign phyllodes tumor of left breast D24.2
[2025-08-18 12:50] VITALS: BP 145/85; PULSE 87; BMI 26.8
--- OUTSIDE RECORDS SUMMARY | 2025-08-18 16:06 | XMS_ITS | Patient Health Record ---
[facility] Address [address] [place] [address] Care Team Providers Care Faucets Assembler Name Role Phone Kelly Jose Primary Care Provider UnavailLokesh Dickens [phone] Reason For Referral No Information Plan Of Treatment No Information Insurance Providers Payer Name Payer Address Payer Phone Subscriber Number Group Number Insured Name Patient Relationship to Insured Coverage Start Date Coverage End Date [facility] [address] [place] [address] [id number] ARIANNA BOCANEGRA Self - patient is the insured
== END 2025-08-18 13:05 | disposition home or self-care (01) ==
LOC: HO.HGS 12:38
PROVIDERS: PCP Internal Medicine; Visit Provider Surgery
DX: D24.2 Benign neoplasm of left breast (principal)
CPT/HCPCS: 99213

== ENCOUNTER → 2025-08-18 12:37 | Outpatient (BNVA) | payer OTHER, SELFPAY | PROVIDERS: PCP Internal Medicine; Visit Provider Surgery | DX: D24.2 Benign neoplasm of left breast (principal) | CPT/HCPCS: 99212 ==

== ENCOUNTER 2025-09-14 11:47 | Outpatient (AMB) | payer OTHER, SELFPAY ==
--- NOTE | 2025-09-14 11:51 | A.OFFVIS_ITS ---
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 No complaints. 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 Sexual orientation: Straight/Heterosexual Gender identity: Female Female Reproductive History Menstrual Age of Menarche: 14 Review of Systems Const All systems reviewed & are unremarkable except as noted in HPI and below Card Reports as per HPI Resp Reports as per HPI GI Reports as per HPI and Reports no additional complaints Reports as per HPI Physical Exam Vital Signs: Last Vital Signs BP 118/76 09/14/25 11:54 BMI result Body Mass Index 26.7 Const General: cooperative, healthy appearing and comfortable Chest Chest palpation & inspection: normal inspection of the chest and normal palpation of entire chest wall Breast/axilla inspection: normal inspection of the breasts and normal inspection of the axillae Breast/axilla palpation: normal palpation of the breasts, normal palpation of the axillae and no axillary lymphadenopathy Resp Effort & Inspection: normal respiratory effort Auscultation: clear to auscultation bilaterally Percussion: percussion normal Cardio Palpation: normal PMI Rate: regular rate Rhythm: regular rhythm Heart sounds: no murmurs and no rubs Peripheral pulses: Peripheral pulses 2+ throughout GI Inspection: Yes normal to inspection Palpation (GI): Soft to palpation, nontender, no guarding, not rigid and No hep atosplenomegaly present Percussion: Yes normal to percussion Auscultation: normal bowel sounds Rectal Exam - Female: deferred General: Yes bladder normal to palpation External Female Exam: No lesion Speculum Exam - Vagina: normal appearance of the vagina, normal palpation, normal vaginal discharge and not erythematous Speculum Exam - Cervix: normal appearance of the cervix and normal palpation Bimanual exam- vagina & uterus: normal bimanual exam, normal palpation, uterine size normal, bladder normal to palpation, consistency normal and normal palpation Bimanual Exam- Adnexa, other: normal adnexae, no masses and no tenderness Assessment & Plan Assessment & Plan (1) Well woman exam: Code(s): Z01.419 - Encounter for gynecological examination (general) (routine) without abnormal findings Category: Medical Plan: Co testing done. Counseled the patient about the recommended dietary allowance of 1200 mg of Calcium & 600 IU of vitamin D. Instructions given the patient to schedule next screening Mammogram in 06/23. The patient was referred to GI for screening colonoscopy . The patient was instructed to perform monthly self-breast exams and schedule annual exam in a year. All questions answered and the patient verbalized understanding. Orders: Orders HPV High risk Today Z01.419 - Encounter for gynecological examination (general) (routine) without abnormal findings Pap Smear Today Z01.419 - Encounter for gynecological examination (general) (routine) without abnormal findings Referrals Gastroenterology Referral Z12.11 - Encounter for screening for malignant neoplasm of colon Coding Level of Care Code Est Pt Prev Care 40-64y(61109) Diagnoses Well woman exam Z01.419
[2025-09-14 11:54] VITALS: BP 118/76; BMI 26.7
== END 2025-09-14 12:36 | disposition home or self-care (01) ==
LOC: HO.HWS 11:47
PROVIDERS: PCP Internal Medicine; Visit Provider Obstetrics & Gynecology
DX: Z01.419 Encounter for gynecological examination (general) (routine) without abnormal findings (principal)
CPT/HCPCS: 99396; 99459

== ENCOUNTER 2025-09-14 11:47 | Outpatient (REF) | payer OTHER, SELFPAY | END 2025-09-14 11:48 | disposition home or self-care (01) | LOC: HO.LNP 11:47 | PROVIDERS: PCP Internal Medicine; Visit Provider Obstetrics & Gynecology | DX: Z01.419 Encounter for gynecological examination (general) (routine) without abnormal findings (principal); Z12.11 Encounter for screening for malignant neoplasm of colon | CPT/HCPCS: 87626; 88175; 99396 ==